=== PATIENT | female | born 1995 | race Caucasian/White ===

== ENCOUNTER → 2017-01-02 | Outpatient (CLI) | payer OTHER ==
[2017-01-05 01:31] LABS: CHLAMYDIA TRACH RNA*** NOT DETECTED (NOT DETECTED); GC (NEIS GONORRHOEAE)RNA** NOT DETECTED (NOT DETECTED)
== END | disposition home or self-care (01) ==
LOC: C.LABSPEC 18:04
PROVIDERS: ATTEND Obstetrics & Gynecology
DX: Z01.419 Encounter for gynecological examination (general) (routine) without abnormal findings (principal)

== ENCOUNTER → 2017-10-28 | Day surgery (SDC) | payer OTHER ==
[2017-10-15 11:36] VITALS: Ht 160 cm; Wt 59.1 kg
[~2017-10-28] VITALS: Ht 160 cm; Wt 59.1 kg
[~2017-10-28] MED LIST: BCPILLS PO; FENTANYL CITRATE INJ 50 MCG/1 ML 2 ML VIAL ONE; LIDOCAINE HCL 2% 2 ML VIAL (20MG/ML) ONE; OMEP20CA9 PO; PROPOFOL IV EMULSION 10 MG/ML 20 ML VIAL IV ONE; SODIUM CHLORIDE 0.9% 500ML 500 ML IV ONE
--- NOTE | 2017-10-28 14:49 | Endo History and Physical ---
History & Physical Date of Service: Oct 28, 2017. Chief Complaint: Dysphagia Referring Physician: Marv History of Present Illness 21 yo CF who presents for colonoscopy secondary to dysphagia. Past Surgical History Hx Cardiac Surgery: No Hx Internal Defibrillator: No Hx Pacemaker: No Hx Abdominal Surgery: No Hx of Implantable Prosthesis: No Hx Post-Op Nausea and Vomiting: Yes Hx Cancer Surgery: No Hx Thoracic Surgery: No Hx Orthopedic: No Hx Urinary Tract Surgery: No Family History None Social History Smoking Status: Never Smoker Hx Substance Use: No Hx Alcohol Use: Yes (OCCASIONAL) Allergies Coded Allergies: No Known Allergies (Unverified , 10/15/17) Current Medications Reported Home Medications Medications Dose Route/Sig Max Daily Dose Days Date Category Control Pills (Miscellaneous) Tab 1 Tab PO HS 10/15/17 Reported Vital Signs Weight (Kilograms): 59.09 Height (Feet): 5 Height (Inches): 3 Physical Exam General Appearance: WD/WN, no apparent distress Respiratory/Chest: Auscultation: breath sounds normal Cardiovascular: Heart Auscultation: RRR Abdomen: Bowel Sounds: normal Inspection & Palpation: soft, non-distended, no tenderness, guarding & rebound Assessment and Plan Assessment: 21 yo CF who presents for colonoscopy secondary to dysphagia. Plan: Proceed with EGD.
--- NOTE | 2017-10-28 15:37 | GI REPORT ---
Procedure Date: 10/28/2017 2:58 PM Procedure: Upper GI endoscopy Indications: Dysphagia Medicines: Monitored Anesthesia Care Complications: No immediate complications. Estimated Blood Loss: Estimated blood loss: none. Procedure: Pre-Anesthesia Assessment: - Prior to the procedure, a History and Physical was performed, and patient medications and allergies were reviewed. The patient's tolerance of previous anesthesia was also reviewed. The risks and benefits of the procedure and the sedation options and risks were discussed with the patient. All questions were answered, and informed consent was obtained. Prior Anticoagulants: The patient has taken no previous anticoagulant or antiplatelet agents. ASA Grade Assessment: II - A patient with mild systemic disease. After reviewing the risks and benefits, the patient was deemed in satisfactory condition to undergo the procedure. After obtaining informed consent, the endoscope was passed under direct vision. Throughout the procedure, the patient's blood pressure, pulse, and oxygen saturations were monitored continuously. The On-site loaner was introduced through the mouth, and advanced to the second part of duodenum. The upper GI endoscopy was accomplished without difficulty. The patient tolerated the procedure well. Findings: No endoscopic abnormality was evident in the esophagus to explain the patient's complaint of dysphagia. It was decided, however, to proceed with dilation at the gastroesophageal junction. A TTS dilator was passed through the scope. Dilation with a 15-16.5-18 mm balloon (to a maximum balloon size of 18 mm) dilator was performed. The dilation site was examined and showed no change. Several biopsies were obtained with cold forceps for histology in a targeted manner in the middle third of the esophagus. The stomach was normal. The examined duodenum was normal. Impression: - No endoscopic esophageal abnormality to explain patient's dysphagia. Esophagus dilated. Dilated. - Normal stomach. - Normal examined duodenum. - Several biopsies were obtained in the middle third of the esophagus. Recommendation: - Resume previous diet. - Continue present medications. - Await pathology results. - Return to primary care physician as previously scheduled. Urbano Oliveira, 10/28/2017 3:36:30 PM This report has been signed electronically. Note Initiated On: 10/28/2017 2:58 PM I attest to the content of the Intraoperative Record and orders documented therein, exceptions below
--- NOTE | 2017-10-28 15:42 | Anesthesiology Progress Note ---
Anesthesia Post Op Note Date & Time Oct 28, 2017 at 15:42 Vital Signs Pain Intensity: 0 Vital Signs Past 12 Hours Date Time Temp Pulse Resp B/P (MAP) Pulse Ox O2 Delivery O2 Flow Rate FiO2 10/28/17 15:35 77 16 109/59 (76) 97 Room Air 10/28/17 15:00 36.7 71 16 124/56 (78) 100 Room Air Notes Mental Status: alert / awake / arousable, participated in evaluation Pt Amnestic to Procedure: Yes Nausea / Vomiting: adequately controlled Pain: adequately controlled Airway Patency, RR, SpO2: stable & adequate BP & HR: stable & adequate Hydration State: stable & adequate Anesthetic Complications: no major complications apparent
--- NOTE | 2017-10-28 15:49 | Discharge Instructions ---
Endoscopy Patient Instructions Date / Procedure(s) Performed Oct 28, 2017. EGD Allergy Information Coded Allergies: No Known Allergies (Unverified , 10/15/17) Discharge Date / Findings Oct 28, 2017. Esophageal dilation to 18 mm Mid-esophageal biopsies Medication Instructions OK to resume all medications today as prescribed Reported Home Medications Medications Dose Route/Sig Max Daily Dose Days Date Category Prilosec (Omeprazole) 20 Mg Cap 20 Mg PO DAILY 10/28/17 Reported Control Pills (Miscellaneous) Tab 1 Tab PO HS 10/15/17 Reported Provider Instructions Activity Restrictions - No exercising or heavy lifting for 24 hours. - Do not drink alcohol the day of the procedure. - Do not drive a car or operate machinery until the day after the procedure. - Do not make any important decisions or sign important papers in 24 hours after the procedure. Following Day: - Return to full activity which may include returning to work/school. Diet Start your diet with liquids and light foods (jello, soup, juice, toast). Then eat your usual diet if not nauseated. Treatment For Common After Affects For mild abdominal pain, bloating, or excessive gas: - Rest - Eat lightly - Lie on right side Follow-Up Information Follow-up with [facility] as scheduled Anesthesia Information What You Should Know You have had a procedure that required some medicine to reduce anxiety and discomfort. This treatment is called moderate sedation. After receiving the treatment, you may be sleepy, but you will be able to breathe on your own. The effects of the treatment may last for several hours. Follow these instructions along with Activity/Diet recommendations noted above: * Do NOT do anything where dizziness or clumsiness would be dangerous. * Rest quietly at home today, then you can be up and about tomorrow. * Have a responsible person stay with you the rest of today. * You may have had an I.V. today. If so, you may take the dressing off later today. Recommendations Call your doctor if: * Trouble breathing * Continuous vomiting for more than 24 hours * Temperature above 101 degrees * Severe abdominal pain or bloating * Pain not relieved by pain medicine ordered * There is increased drainage or redness from any incision * A large amount of rectal bleeding greater than 2-3 tablespoons. (If you had a polyp/s removed or have hemorrhoids, a small amount of blood - from the rectum is to be expected.) * You have any unanswered questions or concerns. IN THE EVENT OF A SERIOUS EMERGENCY, GO TO THE NEAREST EMERGENCY ROOM Your discharge instructions were prepared by provider Urbano Oliveira. Patient Instructions Signature Page Jessi Navas Patient (or Guardian) Signature/Date: I have read and understand the instructions given to me by my caregivers. Caregiver/RN/Doctor Signature/Date: The above-named patient and/or guardian has received patient instructions on this date. + Original Patient Signature Page (only) stays with chart. Please make copy for patient.
[2017-10-28 15:58] VITALS: BP 119/79; PULSE 61; O2SAT 99
== END | disposition home or self-care (01) ==
LOC: C.GI 14:36
PROVIDERS: ATTEND Internal Medicine
DX: R13.10 Dysphagia, unspecified (principal); Z98.818 Other dental procedure status; Z79.3 Long term (current) use of hormonal contraceptives

== ENCOUNTER 2024-02-25 00:32 | Inpatient (IN) ==
[2024-02-25] MEDS ORDERED: LIDOCAINE 1% LOCAL 20 ML VIAL INFIL PRN (01:15)
[2024-02-25] MEDS ORDERED: OXYTOCIN 30 UNITS/NSS 30 UNITS/500 ML BAG IV PRN ×2 (01:15→07:31)
--- NOTE | 2024-02-25 01:19 | History & Physical Report ---
Date of Service February 25, 2024 Assessment & Plan (1) Supervision of normal intrauterine in multigravida: Plan: Admit to L&D. EFM/toco. Labs. Start PCN for GBS prophylaxis. History of Present Illness Chief Complaint: contractions Primary Care Provider: PEGGY PCP 28y @ 39 03/08, came to L&D with contractions. No leaking fluid. + movement. GBS positive. Allergies Allergy/AdvReac Type Severity Reaction Status Date / Time No Known Allergies Allergy Verified 02/18/24 15:28 Home Medications Medication Instructions Recorded Confirmed Type doxylamine succinate 25 mg tablet 25 mg PO Q6H PRN 07/18/23 02/25/24 History (Unisom (doxylamine)) vit 168-iron 27 mg-folic cap PO 07/18/23 02/18/24 History acid 800 mcg-omega3 235 mg capsule (One-A-Day -1) pyridoxine (vitamin B6) 25 mg 25 mg PO DAILY 07/18/23 02/25/24 History tablet (Vitamin B-6) ondansetron HCl 4 mg tablet 4 mg PO Q6H PRN nausea and 08/20/23 02/25/24 Rx vomiting #20 tabs Patient History Medical History No significant past medical history Surgical History No significant past surgical history Family History (Updated 07/18/23 @ 10:55 by Anamika Spangler) Other Diabetes Denies family history of Ovarian cancer Prostate cancer Myocardial infarction Breast cancer Colorectal cancer Social History (Updated 07/18/23 @ 10:56 by Anamika Spangler) Smoking Status: Never smoker Second Hand Exposure: No; Do You Dip or Chew Tobacco: No; Hx Alcohol Use: No Hx Substance Use: No Preferred Language: Ecuadorean Communication Ability: Effective 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 Other Information That Helps Us Care for You: No Feels Safe at Home: Yes Safety Concerns: Feels Safe At This Time Assistive Devices: None Review of Systems All systems reviewed & are unremarkable except as noted in HPI & below Physical Exam Physical Exam: FHT Cat 1 [place] Q 2-3 SVE 4cm per RN Constitutional: WD/WN, vitals as above Respiratory: normal respiratory effort, lungs clear to auscultation no respiratory distress Cardiovascular: Rate/Rhythm: regular rate and regular rhythm Gastrointestinal (Abdomen): Inspection/Auscultation: abdomen normal to inspection Percussion/Palpation: abdomen soft; abdomen nontender Gravid. No s/s chorio or abruption. Skin: no rashes, warm and dry Psychiatric: A+Ox3, euthymic affect Results & Data Vital Signs (Past 12 Hours) Vital Signs Temp Pulse Resp BP 02/25/24 00:49 36.6 C 16 02/25/24 00:45 71 128/69 Coding Level of Care Code None Diagnoses Supervision of normal intrauterine in multigravida Z34.80
[2024-02-25] MEDS: LACTATED RINGER'S 1,000 ML IV PRN (01:56)
[2024-02-25] MEDS: PENICILLIN GK 6 MU in DEXTROSE 5% 250 ML IV STA (01:57)
[2024-02-25 02:03] LABS: Hematocrit (blood only) 32.1 % (37.0-47.0); Hemoglobin 10.5 g/dl (12.0-16.0); Mean Corpuscular Hemoglobin 24.3 pg (25.0-34.0); Mean Corpuscular Hgb Conc 32.7 g/dL (32.0-36.0); Mean Corpuscular Volume 74.3 fL (80.0-100.0); Mean Platelet Volume 11.2 fL (9.4-12.4); Platelet Count 173 K/uL (130-400); RDW Coefficient of Variation 14.5 % (11.5-14.5); RDW Standard Deviation 38.5 fL (36.4-46.3); Red Blood Count 4.32 M/uL (4.20-5.40); White Blood Count 15.05 K/ul (4.8-10.8)
--- NOTE | 2024-02-25 02:14 | Anesthesiology Consultation ---
Date of Service February 25, 2024 Assessment & Plan (1) Encounter for pre-operative examination: Chart Review Chart Review: Acceptable Risk for Labor Epidural History Height/Weight Height: 5 ft 3 in Weight: 72.575 kg Allergies Allergy/AdvReac Type Severity Reaction Status Date / Time No Known Allergies Allergy Verified 02/18/24 15:28 Medications Home Medications Medication Instructions Recorded Confirmed Last Taken doxylamine succinate 25 mg tablet 25 mg PO Q6H PRN 07/18/23 02/25/24 1 Day Ago (Unisom (doxylamine)) ~02/24/24 vit 168-iron 27 mg-folic cap PO 07/18/23 02/18/24 1 Day Ago acid 800 mcg-omega3 235 mg capsule ~02/24/24 (One-A-Day -1) pyridoxine (vitamin B6) 25 mg 25 mg PO DAILY 07/18/23 02/25/24 1 Day Ago tablet (Vitamin B-6) ~02/24/24 ondansetron HCl 4 mg tablet 4 mg PO Q6H PRN nausea and 08/20/23 02/25/24 1 Day Ago vomiting #20 tabs ~02/24/24 Active Medications Generic Name Dose Route Start Last Admin Trade Name Freq PRN Reason Stop Dose Admin Lactated Ringer's 1,000 mls @ 125 mls/hr 02/25/24 01:15 02/25/24 01:56 Lr IV 02/27/24 01:14 999 mls/hr .Q8H PRN Administration L&D Protocol Protocol Penicillin G Potassium 6 mu/ 262 mls @ 262 mls/hr 02/25/24 01:24 02/25/24 01:57 Dextrose IV 02/25/24 02:23 262 mls/hr NOW STA Administration Past Medical History Medical History No significant past medical history Past Family History Family History Other Diabetes Denies family history of Ovarian cancer Prostate cancer Myocardial infarction Breast cancer Colorectal cancer Past Surgical History Surgical History No significant past surgical history Social History Smoking Status: Never smoker Do You Dip or Chew Tobacco: No Hx Alcohol Use: No Hx Substance Use: No Physical Exam Vital Signs Last Vital Signs Temp 36.6 C 02/25/24 00:49 Pulse 71 02/25/24 02:11 Resp 16 02/25/24 00:49 BP 128/69 02/25/24 00:45 Pulse Ox 100 02/25/24 02:11 Testing Laboratory Results 02/25/24 01:34
[2024-02-25] MEDS: fentANYL 2 MCG/ML BUPIVacaine 0.125%-NSS 100ML BAG ONE (02:46)
[2024-02-25] MEDS: LIDOCAINE 2%/EPINEPHRINE 1:200,000 20 ML PF ONE (02:47)
[2024-02-25] MEDS: BUPIVACAINE 0.25% PF 30 ML VIAL ONE (02:47)
[2024-02-25] MEDS: fentaNYL citrate PF 100 MCG/2 ML VIAL ONE (02:47)
[2024-02-25] MEDS ORDERED: NALOXONE HCL 0.4 MG/1 ML VIAL/CARP IV PRN (02:50)
[2024-02-25] MEDS ORDERED: BUPIVACAINE 0.25% PF 30 ML VIAL EPI STA (02:50)
[2024-02-25] MEDS ORDERED: LIDOCAINE 2%/EPINEPHRINE 1:200,000 20 ML PF EPI STA (02:50)
[2024-02-25] MEDS ORDERED: SODIUM CHLORIDE 0.9% PF INJ 10 ML VIAL EPI PRN (02:50)
[2024-02-25] MEDS ORDERED: LIDOCAINE 2% MPF LOCAL 5 ML VIAL EPI PRN (02:50)
[2024-02-25] MEDS ORDERED: ONDANSETRON INJ 2 MG/ML 2 ML VIAL IV PRN (02:50)
[2024-02-25] MEDS ORDERED: fentaNYL citrate PF 100 MCG/2 ML VIAL EPI PRN (02:50)
[2024-02-25] MEDS ORDERED: fentaNYL citrate PF 100 MCG/2 ML VIAL EPI STA (02:50)
[2024-02-25] MEDS ORDERED: ePHEDrine sulfate 50 MG/ML AMP IV PRN (02:50)
[2024-02-25] MEDS ORDERED: SODIUM CHLORIDE 0.9% PF INJ 10 ML VIAL EPI STA (02:50)
[2024-02-25] MEDS ORDERED: fentANYL 2 MCG/ML BUPIVacaine 0.125%-NSS 100ML BAG EPI PRN (02:50)
[2024-02-25] MEDS ORDERED: ROPIVACAINE 0.5% PF 5 MG/ML 20 ML VIAL EPI PRN (02:50)
[2024-02-25] MEDS ORDERED: NALOXONE HCL 1 MG in SODIUM CHLORIDE 0.9% 1,000 ML IV PRN (02:50)
[2024-02-25] MEDS ORDERED: BUPIVACAINE 0.25% PF 30 ML VIAL EPI PRN (02:50)
[2024-02-25] MEDS: PENICILLIN GK 3 MU in DEXTROSE 5% 100 ML IV PRN (05:25)
[2024-02-25] MEDS: OXYTOCIN 30 UNITS/NSS 30 UNITS/500 ML BAG IV PRN (06:33)
--- NOTE | 2024-02-25 07:23 | Delivery Summary ---
Vaginal Delivery Summary Date of Service February 25, 2024 Vaginal Delivery Summary and 3rd Degree LAC Vaginal Delivery Summary: Pre-delivery diagnoses: 28yo @ 39 4/7, GBS+ Post-delivery diagnoses: same Procedure: spontaneous vaginal delivery, repair of 3rd degree perineal laceration Surgeon: Sona Noel DO Complications: none Findings: Viable male . Apgars: 8/9 . Weight pending, please see nursery records Estimated blood loss: 300ml Description of delivery: The patient progressed to complete with epidural anesthesia. She then began to push. She spontaneously vaginally delivered a viable from the cephalic presentation. The head delivered in LUZ position. The anterior shoulder did not deliver immediately, therefore the head was allowed to restitute, and then mom was repositioned using McRobert's maneuver. This allowed the posterior shoulder to deliver, followed by the posterior shoulder, followed by the body. Nuchal cord wrapped around body/shoulders. Approx 60 sec from head to body delivery - mild shoulder dystocia. The baby was placed on mother's abdomen and a spontaneous cry was heard. The cord was doubly clamped and cut and the baby was passed off to waiting nursery team. A segment was retained for cord gases. Cord blood was obtained. The placenta was delivered spontaneously intact with a 3-vessel cord. The uterus and vagina were swept of clots and debris. IV pitocin was given. The uterus became firm. The cervix, vagina, and perineum were inspected and 3rd degree perineal laceration was noted. The anal sphincter muscle was brought together using 3-0 Chromic [id number] sutures. The remaining laceration was repaired with 3-0 Vicryl in standard fashion. Excellent hemostasis was observed. The mother and baby are recovering in stable and good condition in the room. Sponge, needle and instrument counts were correct x 2. Sona Noel [place] [facility] [place] Charge Delivery Type Details: and 3rd Degree LAC
[2024-02-25] MEDS ORDERED: bisacodyL 10 MG SUPP PR PRN (07:31)
[2024-02-25] MEDS ORDERED: HYDROCORTISONE ACETATE 25 MG SUPP PR PRN (07:31)
[2024-02-25] MEDS ORDERED: oxyCODONE/ACETAMINOPHEN 5mg/325mg TAB PO PRN (07:31)
[2024-02-25] MEDS ORDERED: ACETAMINOPHEN 325 MG TAB PO PRN (07:31)
[2024-02-25] MEDS: PRENATAL VITAMIN 1 TAB PO SCH (08:30)
[2024-02-25] MEDS: DOCUSATE SODIUM 100 MG CAP PO SCH (08:30)
[2024-02-25] MEDS: BENZOCAINE 20% SPRY 85 APPLN/85 GM CAN EXT PRN (09:12)
[2024-02-25] MEDS: ePHEDrine sulfate 50 MG/ML AMP ONE (10:15)
[2024-02-25] MEDS: SODIUM CHLORIDE 0.9% PF INJ 10 ML VIAL ONE (10:15)
[2024-02-25] MEDS: DIPHTHER/TETAN/PERTUS Vaccine (Tdap, Adol/Adult) 0.5mL IM ONE (11:12)
[2024-02-25] MEDS: IBUPROFEN 600 MG TAB PO PRN (13:58)
--- NOTE | 2024-02-25 15:15 | Anesthesia Procedure Note ---
Date of Service February 25, 2024 Anesthesia Post Epidural Note Vital Signs Vital Signs: Temp Pulse Resp BP Pulse Ox 36.6 C 85 20 96/65 L 99 02/25/24 10:43 02/25/24 10:43 02/25/24 10:43 02/25/24 08:57 02/25/24 09:03 Pain Intensity Bilateral Abdomen: Pain Intensity: 0 Notes Mental Status: alert / awake / arousable Nausea / Vomiting: adequately controlled Pain: adequately controlled Airway Patency, RR, SpO2: stable & adequate BP & HR: stable & adequate Hydration State: stable & adequate Neuraxial Anesthesia: was administered and sensory block is resolving Anesthetic Complications: no major complications apparent and Pt Satisfied with anesthetic care Epidural: Removed without complications and With tip intact
[2024-02-26 06:40] LABS: Hematocrit (blood only) 28.4 % (37.0-47.0); Hemoglobin 8.8 g/dl (12.0-16.0)
--- NOTE | 2024-02-26 07:36 | Obstetrical Progress Note ---
Date of Service <Molly Lee MD - Last Filed: 02/26/24 07:37> February 26, 2024 Assessment & Plan <Molly Lee MD - Last Filed: 02/26/24 07:37> (1) Encounter for assessment: Plan Patient with the above mentioned history and findings was evaluated at bedside and found awake, alert, oriented in all spheres, afebrile, and in no acute distress. Vital signs showed no fever and blood pressures remained stable. Her blood type is A pos and today's hemoglobin is adequate at 8.8 g/dL. She denies symptoms of anemia such as lightheadedness, dizziness with standing, palpitations, or tachycardia. Serologies are positive for GBS (treated intrapartum) and patient is Rubella immune. Overall, patient is doing well clinically and meeting the desired milestone for her course. Will continue routine pp management. Will manage anemia with iron PO. All questions were answered. <Caroline Hou MD, FACOG - Last Filed: 02/26/24 07:46> (1) Encounter for assessment: Subjective <Molly Lee MD - Last Filed: 02/26/24 07:37> Jessi is a 28 y/o female who is now PPD # 1 following at 39 4/7 weeks. Reports feeling well overall this morning. Refers mild abdominal cramping & 3/10 pain well managed on analgesics. Voiding spontaneously. Tolerating meals overnight and able to ambulate some. Has passed gas but no bm yet. Some persistent lochia with some improvement this morning. Bottle feeding. Constitutional: no fever, no chills or no sweats Denies shortness of breath or difficulty breathing Cardiovascular: no chest pain or no palpitations Breast: no breast pain Genitourinary (female): no dysuria Neurologic: no headache(s) Denies changes in vision Physical Exam <Molly Lee MD - Last Filed: 02/26/24 07:37> General: Alert. Oriented to person, time, and place. Afebrile. No acute distress. Eyes: pupils equal and reactive to light bilaterally, extraocular movements intact. Cardiac: Regular rate and rhythm, no murmurs/rubs/gallops. Respiratory: Clear to auscultation bilaterally a/p, no wheezes/rales/rhonchi. No increased work of breathing. Symmetrical chest rise. No respiratory distress. Abdomen: Soft, nontender, nondistended. Bowel sounds present. Uterus: Uterine fundus firm, non tender, and palpable at umbilicus. Lower Extremities: No lower extremity edema or swelling. No deep calf pain. Maulik's negative bilaterally. Psych: Euthymic affect. Mood and affect congruence. Regular speech rate and content. Results & Data <Molly Lee MD - Last Filed: 02/26/24 07:37> Vital Signs (Past 12 Hours) Vital Signs Temp Pulse Resp BP Pulse Ox O2 Del Method 02/25/24 23:30 36.6 C 72 16 101/62 99 Room Air Supervising Physician <Caroline Hou MD, FACOG - Last Filed: 02/26/24 07:46> Co-Signing Physician Notes Resident Physician Supervision Note: I interviewed and examined the patient. Discussed with Dr. Lee and agree with findings and plan as documented in the note. Any exceptions or clarifications are listed here: [None] Documented By: Caroline Hou MD, FACOG
[2024-02-26] MEDS: FERROUS SULFATE 325 MG TAB PO SCH (08:47)
[2024-02-26] MEDS ORDERED: bisacodyL 5 MG TABEC PO SCH (20:00)
== END 2024-02-26 15:10 | disposition home or self-care (01) | DRG 768 ==
LOC: OPB 00:32 → 4S1 00:37 → 4E2 10:02